=== PATIENT | female | born 1995 | race Caucasian/White ===

== ENCOUNTER 2017-06-20 01:16 | Emergency (ER) | payer OTHER ==
[~2017-06-20] VITALS: Ht 157.5 cm; Wt 58.4 kg
--- NOTE | 2017-06-20 01:19 | EMERGENCY ROOM VISIT NOTE ---
History Report prepared by [place]: Tr Sanchez Under the Supervision of: Dr. Leonid Wilson M.D. First contact with patient: :17 Stated Complaint: ETOH History of Present Illness The patient is a 21 year old female who presents to the Emergency Room via EMS for a persistent alcohol intoxication that started prior to arrival this morning. Per police, the patient was passing out at a table at a restaurant called [employer], and nobody there knew the patient. Per EMS, the patient is very "with it" for her alcohol level of 309, but she did not cooperate with police. The patient denies any injuries, trauma, or pain. She notes that she wants to be discharged home. History limited secondary to patient's intoxication. Source of History: police, EMS History Limited By: intoxication Onset: Prior to arrival this morning Position: other (global - alcohol intoxication) Quality: other (passing out at restaurant) Timing: other (persistent) Note: Associated symptoms: Not cooperative with police. Denies any pain. Review of Systems Review of systems is unobtainable due to alcohol intoxication. Past Medical & Surgical Medical Problems: (1) No chronic problems Family History No pertinent family history Social History Alcohol Use: occasionally Housing Status: lives with roommate Occupation Status: [employer] student Current/Historical Medications Scheduled Amphetamine-Dextroamphetamine 15MG (Adderall Xr 15MG), 15 MG PO DAILY Allergies Coded Allergies: No Known Allergies (Unverified , 06/20/17) Physical Exam Vital Signs Date Time Temp Pulse Resp B/P (MAP) Pulse Ox O2 Delivery O2 Flow Rate FiO2 06/20/17 02:01 132 20 125/65 98 Room Air 06/20/17 01:29 33 06/20/17 01:23 36.8 128 20 129/71 96 Room Air 06/20/17 01:23 98 Room Air Physical Exam GENERAL: Patient is heavily intoxicated though awake and answers all questions. Smells of alcohol. Irritable with being here and continuously requesting to be discharged home. Well appearing and in no acute distress. HEAD: No evidence of Trauma. AT/NC EYES: Injected conjunctiva. Normal EOM. Pupils equal/reactive. ENT: Mucous membranes moist, no nasal congestion, . NECK: No step-offs, no adenopathy, no meningismus, trachea is midline. LUNGS: No dyspnea. Clear to auscultation and equal bilaterally. No wheeze, no rhonchi. HEART: Regular rate and rhythm. No murmurs, rubs, gallops appreciated. ABDOMEN: Soft, nontender, bowel sounds positive, no masses appreciated, no peritonitis. BACK: No midline tenderness, no CVA tenderness EXTREMITIES: Normal motion all extremities, no cyanosis, no edema. NEUROLOGIC: Intoxicated. Awake. Alert, oriented. No acute motor or sensory deficits, no focal weakness, cranial nerves grossly intact. SKIN: No rash, no jaundice, no diaphoresis. Medical Decision & Procedures Laboratory Results 06/20/17 01:31 Test 06/20/17 01:31 Anion Gap 8.0 mmol/L (3-11) Est Creatinine Clear Calc Drug Dose 88.0 ml/min Estimated GFR () 122.2 Estimated GFR (Non- 105.4 BUN/Creatinine Ratio 13.9 (10-20) Calcium Level 8.5 mg/dl (8.5-10.1) Human Chorionic Gonadotropin, Qual NEG (NEG) Ethyl Alcohol mg/dL 374.0 mg/dl (0-3) Laboratory results as reviewed by me. ED Course 0117: The patient was evaluated in room B12B. A limited history and physical exam was performed. 0205: I reevaluated the patient and she is awake and talking, and is in no distress. She has a sober friend with her. 0213: I reevaluated the patient and she is still awake and talking. Her friend notes that she will take the patient home and keep close monitoring on her. We will see if the patient can tolerate ambulation. 0220: The patient ambulated well. The patient verbally expressed understanding and agreement of the treatment plan. The patient will be discharged. Medical Decision Differential: Alcohol Intoxication, Drug Intoxication, Electrolyte Abnormality, Trauma, Intracranial Event, Toxicological, Excited Delirium, Serotonin Syndrome , amongst other pathologies entertained. 21 yr old intoxicated female brought in by EMS after stumbling downtown outside of [employer]. Patient with no evidence nor history for trauma. Protecting airway and breathing comfortably throughout ED stay. EtOH positive. Remarkably awake, alert for her level of intoxication. Able to ambulate appropriately. She has sober friend who is willing to take her home and monitor her. Patient very much wishes to leave and I feel this is reasonable with sober friend. I discussed my concerns with both regarding her alcohol level and concern for abuse of alcohol. Medication Reconcilliation Current Medication List: was personally reviewed by me None on list. Blood Pressure Screening Patient's blood pressure: Normal blood pressure Impression Primary Impression: Alcohol abuse Additional Impression: Alcohol use with intoxication Scribe Attestation The scribe's documentation has been prepared under my direction and personally reviewed by me in its entirety. I confirm that the note above accurately reflects all work, treatment, procedures, and medical decision making performed by me. Departure Information Dispostion Home / Self-Care Patient Instructions My [facility], [facility]: [employer] Students and Alcohol Related Visits Additional Instructions You were evaluated in emergency department for intoxication. This is a sign of Alcohol Abuse and should not be taken lightly. You had a blood alcohol level that was significantly elevated. Over the next 24 hours keep well hydrated and eat light meals. Don't drink any more alcohol. This is important. Please discuss this visit with your Primary Care Provider, [facility] and/or your loved ones. Unless an exceptional circumstance, the Hospital DOES NOT contact anyone DURING your visit, nor is your Protected Medical Information released to anyone without your approval/request. This means we do not contact your Parents, the Police, etc. However, you will likely receive a bill from the Hospital and/or your Insurance company, which will usually be sent to the Primary Policy Cleaning (often one's Parents). Furthermore, as a student, your visit report will likely be sent to [facility] as your primary care provider, unless other Provider listed. If your incident was on campus, or if the Police were involved, they will often contact the University to make them aware of what happened. Often this will result in you being required to take Alcohol Education classes (ie BASICS class) . Please see information given to you at discharge regarding contact for this. If the Police were involved you will likely be cited for public intoxication. Please contact either [facility] Police or the [place] Police for further information. Call 911 or return to Emergency Department if you develop: Passing out, difficulty breathing, many episodes of vomiting, blood in vomit or stool, abdominal pain, fevers, or other severe symptoms. We are always here to help if you feel you need further evaluation or treatment. Problem Qualifiers
[2017-06-20 01:23] VITALS: TEMP 36.8; O2SAT 98; Ht 157.5 cm; Wt 58.4 kg
[2017-06-20 02:01] VITALS: BP 125/65; PULSE 132; O2SAT 98
[2017-06-20 02:02] LABS: PREG INTERNAL NEGATIVE QC NEG CLEAR BACKGROUND; PREG INTERNAL POSITIVE QC POS CONTROL LINE
[2017-06-20 02:04] LABS: BUN/CREATININE RATIO 13.9 (10-20); CALCIUM 8.5 mg/dl (8.5-10.1); CREATININE 0.8 mg/dl (0.60-1.20); POTASSIUM 3.5 mmol/L (3.5-5.1)
[2017-06-20] MEDS ORDERED: AMPH15CA7 PO (02:04)
== END 2017-06-20 02:24 | disposition home or self-care (01) ==
LOC: C.EDB 01:19
DX: F10.10 Alcohol abuse, uncomplicated (principal); F10.920 Alcohol use, unspecified with intoxication, uncomplicated; Y90.8 Blood alcohol level of 240 mg/100 ml or more